=== PATIENT | female | born 1990 | race Caucasian/White ===

== ENCOUNTER 2020-12-17 15:15 | Emergency (ER) | payer OTHER ==
[~2020-12-17] VITALS: Ht 172.7 cm; Wt 72.8 kg
[2020-12-17 15:45] LABS: BILIRUBIN,URINE NEGATIVE (NEG); CLARITY,URINE CLEAR; COLOR,URINE YELLOW; NITRITE,URINE NEGATIVE (NEG); PH,URINE 6.5 (<5.0-8.0); PROTEIN,URINE NEGATIVE (NEG-TRACE); UROBILINOGEN,URINE 0.2 mg/dL (0.2 mg/dL)
--- NOTE | 2020-12-17 15:46 | PHYS DOC ---
General Adult EDM: Chief Complaint: VAGINAL BLEEDING HPI: HPI: Patient is a 30 year old female A1 who presents with painless vaginal bleeding. Patient states she had a positive test about 1 month ago. 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 She noticed some vaginal bleeding today, which she describes as "more than spotting, but less than a full period." Additionally, she reports she passed a small "clot." Patient denies any pelvic or vaginal cramping, fever, chills. She does have some nausea and vomiting, which is normal for her during early . She presents today for evaluation of the bleeding and to check status. Patient believes her blood type to be A+, but she is unsure. Review of Systems: Review of Systems: Constitutional: See HPI Respiratory: Denies cough or shortness of breath. Cardiovascular: Denies chest pain or edema. GI: See HPI : See HPI Musculoskeletal: Denies back pain or joint pain. Integument: Denies rash or other skin lesions. Neurologic: Denies headache, focal weakness or sensory changes. Endocrine: Denies polyuria or polydipsia. Heart Score: C/O Chest Pain: No Physical Exam: PE: Constitutional: Well developed, well nourished, no acute distress, non-toxic appearance. Cardiovascular: Heart rate regular rhythm, no murmur. Lungs & Thorax: Bilateral breath sounds clear to auscultation. Abdomen: Bowel sounds normal, soft, no tenderness, no masses, no pulsatile masses. Skin: Warm, dry, no erythema, no rash. Back: No tenderness, no CVA tenderness. Extremities: No tenderness, no cyanosis, no clubbing, ROM intact, no edema. Neurologic: Alert and oriented x3, normal motor function, normal sensory function, no focal deficits noted. Current Patient Data: Labs: Laboratory Tests Test 12/17/20 15:28 12/17/20 15:35 12/17/20 15:42 Urine Collection Type Unknown Urine Color Yellow Urine Clarity Clear Urine pH 6.5 (<5.0-8.0) Urine Specific [place] <=1.005 (1.000-1.030) Urine Protein Negative mg/dL (NEG-TRACE) Urine Glucose (UA) Negative mg/dL (NEG) Urine Ketones (Stick) Negative mg/dL (NEG) Urine Blood Large (NEG) Urine Nitrite Negative (NEG) Urine Bilirubin Negative (NEG) Urine Urobilinogen Dipstick 0.2 mg/dL (0.2 mg/dL) Urine Leukocyte Esterase Trace (NEG) Urine RBC 11-20 /HPF (0-2) Urine WBC 1-4 /HPF (0-4) Urine Squamous Epithelial Cells Mod /LPF Urine Bacteria Few /HPF (0-FEW) Bedside Urine HCG, Qualitative Hcg positive (Negative) White Blood Count 11.9 x10^3/uL (4.0-11.0) Red Blood Count 4.16 x10^6/uL (3.50-5.40) Hemoglobin 13.1 g/dL (12.0-15.5) Hematocrit 37.8 % (36.0-47.0) Mean Corpuscular Volume 91 fL (79-100) Mean Corpuscular Hemoglobin 32 pg (25-35) Mean Corpuscular Hemoglobin Concent 35 g/dL (31-37) Red Cell Distribution Width 12.1 % (11.5-14.5) Platelet Count 304 x10^3/uL (140-400) Neutrophils (%) (Auto) 64 % (31-73) Lymphocytes (%) (Auto) 28 % (24-48) Monocytes (%) (Auto) 7 % (0-9) Eosinophils (%) (Auto) 1 % (0-3) Basophils (%) (Auto) 1 % (0-3) Neutrophils # (Auto) 7.6 x10^3/uL (1.8-7.7) Lymphocytes # (Auto) 3.3 x10^3/uL (1.0-4.8) Monocytes # (Auto) 0.9 x10^3/uL (0.0-1.1) Eosinophils # (Auto) 0.1 x10^3/uL (0.0-0.7) Basophils # (Auto) 0.1 x10^3/uL (0.0-0.2) Maternal Serum HCG Beta Subunit 86088 mIU/mL (0-5) Sodium Level 138 mmol/L (136-145) Potassium Level 3.6 mmol/L (3.5-5.1) Chloride Level 101 mmol/L (98-107) Carbon Dioxide Level 26 mmol/L (21-32) Anion Gap 11 (6-14) Blood Urea Nitrogen 11 mg/dL (7-20) Creatinine 0.6 mg/dL (0.6-1.0) Estimated GFR (Cockcroft-Gault) 117.4 BUN/Creatinine Ratio 18 (6-20) Glucose Level 92 mg/dL (70-99) Calcium Level 9.1 mg/dL (8.5-10.1) Total Bilirubin 0.2 mg/dL (0.2-1.0) Aspartate Amino Transf (AST/SGOT) 12 U/L (15-37) Alanine Aminotransferase (ALT/SGPT) 12 U/L (14-59) Alkaline Phosphatase 46 U/L (46-116) Total Protein 7.2 g/dL (6.4-8.2) Albumin 4.2 g/dL (3.4-5.0) Albumin/Globulin Ratio 1.4 (1.0-1.7) Blood type A Positive Vital Signs: Vital Signs Date Time Temp Pulse Resp B/P (MAP) Pulse Ox O2 Delivery O2 Flow Rate FiO2 12/17/20 15:24 98.6 16 151/95 (113) Room Air 98.6 Radiology/Procedures: Radiology/Procedures: PROCEDURE: OB < 14 WKS EXAM: Obstetrics sonogram. HISTORY: Vaginal bleeding. TECHNIQUE: Transabdominal sonographic imaging of the pelvis was performed. COMPARISON: None. FINDINGS: The uterus measures 10 x 8 x 7 cm. There is an intrauterine gestat ional sac with pole and yolk sac. The interstitial sac is normal in configuration and location. The crown-rump length is 1.47 cm, corresponding with a gestational age of 7 weeks and 6 days and due date of 07/30/2021. There is normal heart rate of 169 bpm. The maternal ovaries are normal in size and demonstrate normal blood flow. There is a 2.2 cm right ovarian cyst. There is no pelvic free fluid. No subchronic hematoma is seen. IMPRESSION: 1. Single intrauterine fetus with normal heart rate and gestational age patient also measurements of 7 weeks and 6 days. 2. 2.2 cm right ovarian cyst. 3. No finding to correlate with reported vaginal bleeding. Electronically signed by: Sharmin Carnes MD (12/17/2020 4:35 PM) [id number] Course & Med Decision Making: Course & Med Decision Making Pertinent Labs and Imaging studies reviewed. (See chart for details) Patient has not yet verified with OB yet. Transvaginal ultrasound ordered to evaluate status and position. Urinalysis and blood work also ordered, including type and screen for Rho status. Patient does have mild vaginal bleeding, but with it being painless and not passing any large clots, it seems that patient may be experiencing threatened . Will wait for ultrasound read to confirm viability of fetus. Pelvic ultrasound shows viable fetus with normal heart rate and no abnormal findings related to reported vaginal bleeding. Patient will be discharged home with strict return precautions for increased bleeding, pelvic pain, cramping, fever or any new symptoms. Discussed with patient that she should minimize all activity for the next few days until she is able to follow-up with her forensic science examiner. Patient understands and is agreeable to discharge plan. Everardo Disclaimer: Everardo Disclaimer: This electronic medical record was generated, in whole or in part, using a voice recognition dictation system. Departure Departure Impression: Primary Impression: with early threatened Disposition: HOME / SELF CARE / HOMELESS Condition: STABLE Referrals: UNKNOWN PCP NAME (PCP) Patient Instructions: Threatened Miscarriage, [id number] Additional Instructions: Your work-up today revealed a viable fetus age 7 weeks and 6 days. Please minimize all activity for the next couple of days until you are able to follow- up with Dr. Torrez at [facility] in [place], [place] on , as scheduled. Be sure to drink plenty of water and clear fluids. Please return to the emergency department if you have increased bleeding, if you develop pain or cramping, fever or any other new symptoms. ISIDORO CASTANEDA Dec 17, 2020 15:46
[2020-12-17 15:47] LABS: BASO # 0.1 x10^3/uL (0.0-0.2); BASO % 1 % (0-3); EOS # 0.1 x10^3/uL (0.0-0.7); EOS % 1 % (0-3); HEMATOCRIT 37.8 % (36.0-47.0); HEMOGLOBIN 13.1 g/dL (12.0-15.5); LYMPH # 3.3 x10^3/uL (1.0-4.8); LYMPH % 28 % (24-48); MEAN CORPUSCULAR HEMOGLOBIN 32 pg (25-35); MEAN CORPUSCULAR HGB CONC 35 g/dL (31-37); MEAN CORPUSCULAR VOLUME 91 fL (79-100); MONO # 0.9 x10^3/uL (0.0-1.1); MONO % 7 % (0-9); NEUT # 7.6 x10^3/uL (1.8-7.7); NEUT % 64 % (31-73); PLATELET COUNT 304 x10^3/uL (140-400); RED BLOOD COUNT 4.16 x10^6/uL (3.50-5.40); RED CELL DISTRIBUTION WIDTH 12.1 % (11.5-14.5); WHITE BLOOD COUNT 11.9 x10^3/uL (4.0-11.0)
[2020-12-17 15:53] LABS: BACTERIA,URINE FEW /HPF (0-FEW)
[2020-12-17 15:59] LABS: CALCIUM 9.1 mg/dL (8.5-10.1); CREATININE 0.6 mg/dL (0.6-1.0); GFR 117.4; POTASSIUM 3.6 mmol/L (3.5-5.1)
[2020-12-17 16:05] LABS: ALBUMIN 4.2 g/dL (3.4-5.0); ALBUMIN/GLOBULIN RATIO 1.4 (1.0-1.7); TOTAL BILIRUBIN 0.2 mg/dL (0.2-1.0); TOTAL PROTEIN 7.2 g/dL (6.4-8.2)
--- NOTE | 2020-12-17 16:38 | RAD ---
EXAM: Obstetrics sonogram. HISTORY: Vaginal bleeding. TECHNIQUE: Transabdominal sonographic imaging of the pelvis was performed. COMPARISON: None. FINDINGS: The uterus measures 10 x 8 x 7 cm. There is an intrauterine gestational sac with pole and yolk sac. The interstitial sac is normal in configuration and location. The crown-rump rachelle gth is 1.47 cm, corresponding with a gestational age of 7 weeks and 6 days and due date of 07/30/2021. There is normal heart rate of 169 bpm. The maternal ovaries are normal in size and demonstrate normal blood flow. There is a 2.2 cm right ovarian cyst. There is no pelvic free fluid. No subchronic hematoma is seen. IMPRESSION: 1. Single intrauterine fetus with normal heart rate and gestational age patient also measurements of 7 weeks and 6 days. 2. 2.2 cm right ovarian cyst. 3. No finding to correlate with reported vaginal bleeding. Electronically signed by: Sharmin Carnes MD (12/17/2020 4:35 PM) [id number]
[2020-12-17 16:58] VITALS: BP 138/76
== END 2020-12-17 16:58 | disposition home or self-care (01) ==
LOC: ER 15:15
DX: O20.0 Threatened abortion (principal); O34.81 Maternal care for other abnormalities of pelvic organs, first trimester; N83.201 Unspecified ovarian cyst, right side; Z3A.01 Less than 8 weeks gestation of pregnancy
CPT/HCPCS: 36415; 76801; 80053; 81001; 81025; 84702; 85025; 86900; 86901; 87086; 99284